=== PATIENT | female | born 1950 | race Caucasian/White ===

== ENCOUNTER 2022-09-15 12:20 | Inpatient (IN) ==
--- NOTE | 2022-09-15 12:32 | Emergency Department Note ---
HPI General Chief complaint: Extremity Injury, Lower Stated complaint: R hip Time Seen by Provider: 09/15/22 12:31 Source: patient and EMS Mode of arrival: ambulatory Limitations: no limitations History of Present Illness HPI Narrative: Narrative: Patient is a 72-year-old female with no significant past medical history who presents to the emergency department due to concern for hip injury. She states that she was in her garage when she tripped and fell on her right side. She states that she immediately began to have significant right hip pain which she describes as 8 out of 10 in severity. She states that it is in the area of the hip without further radiation. She states that worsens with any movement. She denies any other symptoms at this time. Related Data Home Medications Medication Instructions Recorded Confirmed Melaleuca Peak Performance over 50 PO 05/14/21 07/27/22 Movewell PO 05/14/21 07/27/22 cetirizine 10 mg tablet 10 mg PO QDAY 05/14/21 09/15/22 Previous Rx's Medication Instructions Recorded estradiol 2 mg tablet 1 mg PO QDAY #90 tabs 12/04/21 hydrocodone 10 mg-acetaminophen 1 - 2 tab PO Q4HP PRN Per Pain 09/15/22 325 mg tablet Protocol #40 tabs Allergies Allergy/AdvReac Type Severity Reaction Status Date / Time sulfur dioxide Allergy Intermediate bronchial Verified 09/15/22 14:46 constriction amphetamine Allergy Unknown Unknown Verified 09/15/22 12:20 Review of Systems ROS ROS Narrative: Narrative: Constitutional: Denies fever or weakness Eyes: Denies eye pain or vision change ENT ED: Denies throat pain or rhinorrhea Cardiovascular: Denies chest pain, dyspnea on exertion, orthopnea or edema Respiratory: Denies shortness of breath or cough Gastrointestinal: Denies abdominal pain, nausea, vomiting, diarrhea, constipation, hematochezia or melena Musculoskeletal: Reports joint pain (Right hip); Denies back pain or myalgia Integumentary: Denies rash or lesions Neurological: Denies headache, weakness, numbness, confusion, abnormal gait or dizziness Endocrine: Denies fatigue or polyuria Hematological/Lymphatic: Denies easy bleeding or easy bruising PFSH Narrative Patient History Narrative: Narrative: Medical/Surgical/Family History All Active Problems (Updated 09/17/22 @ 10:52 by Mika Lieberman MD) Closed fracture of right hip (Acute) Closed right hip fracture (Acute) Full code status (Acute) Advanced care planning/counseling discussion (Acute) Screening for HIV without presence of risk factors (Acute) Encounter for hepatitis C screening test for low risk patient (Acute) Need for hepatitis B screening test (Acute) Medicare welcome exam (Acute) Breast cancer screening by mammogram (Acute) Cerumen impaction (Acute) Atypical mole (Acute) Fatigue (Acute) Iron deficiency anemia (Acute) Peripheral neuropathy (Acute) Arthritis of both hands (Acute) Wellness examination (Acute) Environmental allergies (Acute) Chest pain (Acute) Menopausal and postmenopausal disorder (Chronic) Reactive airway disease (Chronic) Basal cell carcinoma (Chronic) Allergic rhinitis (Chronic) Medical History (Updated 09/17/22 @ 10:52 by Mika Lieberman MD) Advanced care planning/counseling discussion Allergic rhinitis since an infant, environmental allergies Arthritis of both hands Atypical mole Basal cell carcinoma 2007, from her back Breast cancer screening by mammogram Cerumen impaction Encounter for hepatitis C screening test for low risk patient Environmental allergies Fatigue Full code status Iron deficiency anemia Medicare welcome exam Menopausal and postmenopausal disorder Need for hepatitis B screening test Peripheral neuropathy Reactive airway disease with exposure to cats Screening for HIV without presence of risk factors Wellness examination Surgical History (Updated 05/14/21 @ 15:14 by Michelle Rutherford) History of cryosurgery 4 lesions that were pre-cancerous History of hysterectomy (~1999) Dr. Mancia; for pelvic pain and slightly abnormal pap smear History of lumpectomy Breast History of oophorectomy (~1999) History of tonsillectomy (~1956) Family History (Updated 05/14/21 @ 15:15 by Michelle Rutherford) Family/Other Breast cancer, Onset Age: 70 Mother Esophageal reflux Hypertension, essential Uterus cancer Hysterectomy that revealsed small uterine CA Father , 72 first dx in his 50s, had 3 recurrances Prostate cancer Social History Smoking Status: Never smoker Alcohol Intake Frequency: a few times a week Substance Use: does not use Exam Narrative Narrative: Narrative: General Limitations: no limitations General appearance: Present alert and in no apparent distress; Absent anxious, appears intoxicated or sleepy Head Head: Present atraumatic and normocephalic Eye Eye: Present EOMI; Absent scleral icterus or nystagmus ENT ENT: Present mucous membranes moist; Absent nasal congestion Neck Neck: Present full ROM; Absent tenderness Chest Chest: Present normal inspection and symmetric chest wall rise Respiratory Respiratory: Present normal lung sounds bilaterally; Absent respiratory distress or accessory muscle use Cardiovascular Cardiovascular: Present regular rate, normal rhythm and normal heart sounds Adbominal Abdominal: Present soft; Absent distention Extremities Extremities: Present normal inspection, full ROM and tenderness (Right hip) Back Back: Present normal inspection and full ROM; Absent tenderness Neurological Neurological: Present alert and oriented X3 Psychiatric Psychiatric: Present normal affect and normal mood Skin Skin: Present warm (WNL), dry and normal color Course Vital Signs Vital signs: Vital Signs Temperature 97.7 F 09/15/22 12:21 Pulse Rate 66 09/15/22 12:21 Respiratory Rate 17 09/15/22 12:21 Blood Pressure 150/122 09/15/22 12:21 Pulse Oximetry (%) 95 09/15/22 12:21 Oxygen Delivery Method 09/15/22 12:21 Temperature 98.7 F 09/17/22 08:00 Pulse Rate 79 09/17/22 08:00 Respiratory Rate 16 09/17/22 08:00 Blood Pressure 112/64 09/17/22 08:00 Pulse Oximetry (%) 98 09/17/22 09:00 Oxygen Delivery Method 09/17/22 09:00 MDM MDM Narrative Medical decision making narrative: Narrative: Patient is a 72-year-old female with no significant past medical history who presents to the emergency department due to concern for hip injury. Differential diagnoses include hip fracture, hip dislocation, and soft tissue injury. Patient's x-ray does demonstrate a right-sided subcapital hip fracture. For t his reason I did call and speak to Dr. Harris who agreed with admission of patient in preparation for surgery. Lab Data Result diagrams: 09/16/22 05:18 Labs: Lab Results 09/15/22 09/15/22 09/15/22 Range/Units 12:50 12:50 12:52 WBC 7.3 (4.5-11.0) K/mcL RBC 4.30 (3.59-5.38) M/mcL Hgb 12.5 (11.2-15.7) g/dL Hct 38.4 (34.1-44.9) % POC Hct 38.0 (36-48) MCV 89.3 (80.0-100.0) fL MCH 29.1 (26.0-34.0) pg MCHC 32.6 (31.0-36.0) g/dL RDW 13.1 (11.5-14.5) % Plt Count 207 (140-440) K/mcL MPV 10.0 (8.8-12.5) fL Immature Gran % (Auto) 0.6 H (0.0-0.5) % Neut % (Auto) 63.1 (38.0-78.0) % Lymph % (Auto) 27.2 (15.5-49.0) % [place] % (Auto) 7.2 (1.0-12.0) % Eos % (Auto) 1.2 (0.0-7.0) % Baso % (Auto) 0.7 (0.0-2.0) % Lymph # (Auto) 1.98 (1.50-4.80) K/mcL [place] # (Auto) 0.52 (0.10-0.90) K/mcL Eos # (Auto) 0.09 (0.00-0.70) K/mcL Baso # (Auto) 0.05 (0.00-0.30) K/mcL Immature Gran # 0.04 (0.00-0.05) K/mcl Absolute Neutrophils 4.59 (1.80-8.00) K/mcL PT 13.1 (11.9-14.5) sec INR 1.0 (0.9-1.1) APTT 28.9 (20.0-37.0) sec POC Sodium 140 (133-145) POC Potassium 4.0 (3.3-5.1) POC Chloride 107 (96-108) POC Total CO2 26.0 (22-30) POC BUN 19 (6-20) POC Creatinine 1.1 (0.6-1.2) POC Glucose 106 H (70-105) POC WB Ioniz Calcium 1.24 (1.16-1.32) Urine Color Urine Appearance (Clear) Urine pH (5.0-9.0) Ur Specific [place] (1.000-1.035) Urine Protein (Negative) mg/dL Urine Glucose (UA) (Negative) mg/dL Urine Ketones (Negative) mg/dL Urine Occult Blood (Negative) mg/dL Urine Nitrate (Negative) Urine Bilirubin (Negative) mg/dL Urine Urobilinogen mg/dL Ur Leukocyte Esterase (Negative) /uL Urine RBC (0-3) /hpf Urine WBC (0-4) /hpf Ur Squamous Epith Cells (0-4) /hpf Urine Bacteria (0) /hpf Urine Mucus (None) /hpf Ur Culture Indicated? 09/15/22 Range/Units 13:52 WBC (4.5-11.0) K/mcL RBC (3.59-5.38) M/mcL Hgb (11.2-15.7) g/dL Hct (34.1-44.9) % POC Hct (36-48) MCV (80.0-100.0) fL MCH (26.0-34.0) pg MCHC (31.0-36.0) g/dL RDW (11.5-14.5) % Plt Count (140-440) K/mcL MPV (8.8-12.5) fL Immature Gran % (Auto) (0.0-0.5) % Neut % (Auto) (38.0-78.0) % Lymph % (Auto) (15.5-49.0) % [place] % (Auto) (1.0-12.0) % Eos % (Auto) (0.0-7.0) % Baso % (Auto) (0.0-2.0) % Lymph # (Auto) (1.50-4.80) K/mcL [place] # (Auto) (0.10-0.90) K/mcL Eos # (Auto) (0.00-0.70) K/mcL Baso # (Auto) (0.00-0.30) K/mcL Immature Gran # (0.00-0.05) K/mcl Absolute Neutrophils (1.80-8.00) K/mcL PT (11.9-14.5) sec INR (0.9-1.1) APTT (20.0-37.0) sec POC Sodium (133-145) POC Potassium (3.3-5.1) POC Chloride (96-108) POC Total CO2 (22-30) POC BUN (6-20) POC Creatinine (0.6-1.2) POC Glucose (70-105) POC WB Ioniz Calcium (1.16-1.32) Urine Color Yellow Urine Appearance Clear (Clear) Urine pH 7.0 (5.0-9.0) Ur Specific [place] 1.009 (1.000-1.035) Urine Protein Negative (Negative) mg/dL Urine Glucose (UA) Negative (Negative) mg/dL Urine Ketones Negative (Negative) mg/dL Urine Occult Blood Negative (Negative) mg/dL Urine Nitrate Negative (Negative) Urine Bilirubin Negative (Negative) mg/dL Urine Urobilinogen Negative mg/dL Ur Leukocyte Esterase Negative (Negative) /uL Urine RBC 3 (0-3) /hpf Urine WBC < 1 (0-4) /hpf Ur Squamous Epith Cells 0 (0-4) /hpf Urine Bacteria None (0) /hpf Urine Mucus Few A (None) /hpf Ur Culture Indicated? No Discharge Plan Patient/Caregiver Discharge Instructions Pt seen by RN BURN/PA only: No Clinical Impression: Closed fracture of right hip Activity: ambulate only with your walker Patient Disposition: Xfer As Outpt/Obs ([facility]) Discharge Date/Time: 09/15/22 14:18
[2022-09-15] MEDS ORDERED: HYDROmorphone 0.5 MG/0.5 ML SYRINGE IV ONE (12:37)
[2022-09-15] MEDS ORDERED: ONDANSETRON 4 MG/2 ML VIAL IV ONE (12:51)
[2022-09-15 12:56] LABS: POC Calcium, Ionized 1.24 (1.16-1.32); POC Creatinine 1.1 (0.6-1.2)
[2022-09-15] MEDS ORDERED: 0.9 % SODIUM CHLORIDE 1,000 ML IV SCH (13:45)
[2022-09-15] MEDS: HYDROmorphone 0.5 MG/0.5 ML SYRINGE IV PRN ×3 (13:58→22:08)
[2022-09-15 14:01] LABS: Partial Thromboplastin Time 28.9 sec (20.0-37.0); Prothrombin Time 13.1 sec (11.9-14.5)
--- NOTE | 2022-09-15 14:17 | XRay Report ---
HISTORY: Fell with right hip injury FINDINGS: There is an acute subcapital fracture in the right femoral neck. There is impaction and mild valgus angulation. The femoral head is normally aligned with the acetabulum. Joint space is normal in width. There are small marginal spurs. No other fracture is present. 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 IMPRESSION: Subcapital fracture of the right femoral neck Interpreted and Authenticated by: Tony Sheppard 09/15/22
--- NOTE | 2022-09-15 14:20 | XRay Report ---
HISTORY: Preop for repair fractured right hip FINDINGS: The lungs are clear and well expanded. The heart size, pulmonary vasculature, mediastinum, quinton and pleura are normal. There has been little change since 11/04/19. IMPRESSION: Normal exam Interpreted and Authenticated by: Tony Sheppard 09/15/22
[2022-09-15] MEDS ORDERED: ceFAZolin 2 GM in DEXTROSE 5% IN WATER 50 ML IV SCH (14:45)
[2022-09-15 15:00] LABS: Basophils # (Auto) 0.05 K/mcL (0.00-0.30); Basophils % (Auto) 0.7 % (0.0-2.0); Eosinophils # (Auto) 0.09 K/mcL (0.00-0.70); Eosinophils % (Auto) 1.2 % (0.0-7.0); Hematocrit 38.4 % (34.1-44.9); Hemoglobin 12.5 g/dL (11.2-15.7); Lymphocytes # (Auto) 1.98 K/mcL (1.50-4.80); Lymphocytes % (Auto) 27.2 % (15.5-49.0); Mean Cell Volume 89.3 fL (80.0-100.0); Mean Corpuscular HGB Conc 32.6 g/dL (31.0-36.0); Monocytes # (Auto) 0.52 K/mcL (0.10-0.90); Monocytes % (Auto) 7.2 % (1.0-12.0); Neutrophils % (Auto) 63.1 % (38.0-78.0); Platelet Count 207 K/mcL (140-440); Red Cell Distribution Width 13.1 % (11.5-14.5); WBC 7.3 K/mcL (4.5-11.0)
[2022-09-15 15:04] LABS: Appearance,Urine CLEAR (Clear); Bilirubin,Urine Negative (Negative); Color,Urine YELLOW; Culture Indicated,Urine No; Glucose,Urine (UA) Negative (Negative); Ketones,Urine Negative (Negative); Leukocyte Esterase,Urine Negative /uL (Negative); Mucus,Urine FEW /hpf; Nitrate,Urine Negative (Negative); Protein,Urine Negative (Negative); Specific Gravity,Urine 1.009 (1.000-1.035); Urine Blood Negative (Negative); Urine RBC 3 /hpf (0-3); Urine Squamous Epithelial Cell 0 /hpf (0-4); Urine WBC < 1 /hpf (0-4); Urobilinogen,Urine Negative
[2022-09-15] MEDS ORDERED: MIDAZOLAM 2 MG/2 ML VIAL ONE (15:09)
[2022-09-15] MEDS ORDERED: PROPOFOL 200 MG/20 ML VIAL IV ONE (15:09)
[2022-09-15] MEDS ORDERED: TRANEXAMIC ACID 1,000 MG/10 ML VIAL ONE ×2 (15:09→16:59)
--- NOTE | 2022-09-15 15:34 | Consultation ---
DATE OF CONSULTATION: 09/15/2022 CHIEF COMPLAINT: Right hip pain. HISTORY OF PRESENT ILLNESS: A 72-year-old female with a history of a same level fall on her right hip with immediate pain, swelling, and deformity. She was seen in the Emergency Room and diagnosed with right femoral neck fracture. The patient was confirmed to have a femoral neck fracture after being unable to ambulate after same level fall. No loss of consciousness. Otherwise, she is a fairly healthy individual. She has health problems that are consistent with her ROS. PAST MEDICAL HISTORY: Iron deficient anemia, which is chronic; peripheral neuropathy; and reactive airway disease. MEDICATIONS: Estradiol 2 mg tablet daily. Melaleuca allergy medication. PHYSICAL EXAMINATION: VITAL SIGNS: Height 5'4", weight 150 pounds, BP 123/80, pulse rate 64, respiratory rate 17, temperature 97.7, and oxygen saturation 91. GENERAL: A very pleasant 72-year-old female who is well kept and well groomed, in pain. Patient speaks without difficulty and gives a good history. HEENT: Normocephalic, atraumatic. Tongue is midline. NECK: Supple, nontender LUNGS: Clear to auscultation. CARDIOVASCULAR: Regular rate and rhythm. No murmurs, rubs or gallops. No peripheral edema. No open wounds, lacerations, or abrasions. ABDOMEN: Soft, nontender. EXTREMITIES: Right leg is slightly shortened, but not rotated. She moves her foot up and down without difficulty. Foot is pink and warm. IMAGING: X-rays including AP pelvis, AP and lateral of the right hip demonstrate a subcapital femoral neck fracture with impaction. PLAN: We discussed the treatment options, which includes pinning versus a hemiarthroplasty. We recommended hemiarthroplasty, given the nature and the displacement but both are options. She has agreed to proceed with hemiarthroplasty. Given her good bone quality, this will be a cemented hemiarthroplasty; she will be able to bear weight immediately. She understands the risks and the benefits of any surgery to include heart attack, strokes, and bleeding; infections are a risk, but fairly small risk; and the benefit of which would be to get her up moving quickly and an excellent outcome. BRANDON:lukas Job ID: [id number] Doc ID: [id number] Logan Padilla MD
[2022-09-15] MEDS ORDERED: ACETAMINOPHEN 1,000 MG/100 ML BAG IV ONE (16:01)
[2022-09-15] MEDS ORDERED: IPRATROPIUM/ALBUTEROL 3 ML AMPUL.NEB NEB PRN (16:01)
[2022-09-15] MEDS ORDERED: fentaNYL 100 MCG/2 ML VIAL IV PRN (16:01)
[2022-09-15] MEDS ORDERED: HYDROmorphone 0.5 MG/0.5 ML SYRINGE IV PRN (16:01)
--- NOTE | 2022-09-15 16:14 | EKG ---
[facility] Test Date: 2022-09-15 Pat Name: Lilia Schmidt Department: ED Room: Gender: Female Thread Spooler: SAURABH : 1950 Requested By: Mika Lieberman Order Number: [id number] Reading MD: Christina Mancini D.O. Measurements Intervals [place] Rate: 59 P: 47 MT: 153 QRS: 77 QRSD: 110 T: 54 QT: 408 QTc: 405 Interpretive Statements Sinus rhythm Borderline low voltage, extremity leads Electronically Signed On 09-15-2022 16:14:30 PST by Christina Mancini D.O. /store/M0/[id number]/[id number].pdf
[2022-09-15] MEDS ORDERED: POLYETHYLENE GLYCOL 3350 17 GM PACKET PO PRN (16:54)
[2022-09-15] MEDS ORDERED: FLEETS ADULT ENEMA PR PRN (16:54)
[2022-09-15] MEDS ORDERED: MAGNESIUM HYDROXIDE 30 ML ORAL.SUSP PO PRN (16:54)
[2022-09-15] MEDS ORDERED: TRANEXAMIC ACID 1,000 MG/10 ML VIAL IV ONE (16:54)
[2022-09-15] MEDS ORDERED: BISACODYL 10 MG SUPP.RECT PR PRN (16:54)
[2022-09-15] MEDS ORDERED: TEMAZEPAM 15 MG CAPSULE PO PRN (16:54)
[2022-09-15] MEDS ORDERED: ONDANSETRON 4 MG/2 ML VIAL IV PRN ×2 (16:54)
--- NOTE | 2022-09-15 16:54 | Brief Operative Note ---
Brief Operative Note Date of procedure: 09/15/22 Pre-op diagnosis: right femoral neck fx Post-op diagnosis: same Procedure: Right hip hemiarthroplasty sp fx Grafts/Implants: Yes Anesthesia: GETA Findings: femoral neck fx Complications: none Surgeon: Logan Padilla Estimated blood loss (cc): 84 Specimens Removed/Pathology: none sent Condition: stable Disposition: PACU
[2022-09-15] MEDS: ONDANSETRON 4 MG/2 ML VIAL IV PRN (18:19)
[2022-09-15] MEDS: 0.45 % SODIUM CHLORIDE 1,000 ML IV SCH (18:20)
--- NOTE | 2022-09-15 18:24 | XRay Report ---
HISTORY: Postop repair of right hip fracture FINDINGS: There is a well-positioned right total hip prosthesis. The femoral head and neck have been removed. No new fracture has developed. IMPRESSION: Well-positioned right hip prosthesis Interpreted and Authenticated by: Tony Sheppard 09/15/22
[2022-09-15] MEDS: HYDROcodone/APAP 10/325MG TABLET PO PRN (20:24)
[2022-09-15] MEDS: ASPIRIN 81 MG TAB.CHEW CHEWED SCH (20:24)
[2022-09-15] MEDS: DOCUSATE SODIUM 100 MG CAPSULE PO SCH (20:26)
[2022-09-15] MEDS: SENNOSIDES 1 TABLET PO SCH (20:26)
[2022-09-15] MEDS: 0.9 % SODIUM CHLORIDE 10 ML SYRINGE IV SCH (20:27)
[2022-09-15] MEDS: HYDROmorphone 1 MG/ML SYRINGE IV PRN (21:14)
[2022-09-15] MEDS: ceFAZolin 1 GM VIAL IV SCH (21:55)
[2022-09-16] MEDS: HYDROmorphone 0.5 MG/0.5 ML SYRINGE IV PRN ×2 (00:15→04:06)
[2022-09-16] MEDS: 0.45 % SODIUM CHLORIDE 1,000 ML IV SCH ×2 (04:02→16:07)
[2022-09-16] MEDS: 0.9 % SODIUM CHLORIDE 10 ML SYRINGE IV SCH ×3 (04:06→20:04)
[2022-09-16] MEDS: HYDROmorphone 1 MG/ML SYRINGE IV PRN (07:06)
[2022-09-16] MEDS: ceFAZolin 1 GM VIAL IV SCH (07:07)
--- NOTE | 2022-09-16 07:47 | Operative Note ---
DATE OF OPERATION: 09/15/2022 DATE OF PROCEDURE: 09/15/2022 PREOPERATIVE DIAGNOSIS: Right femoral neck fracture, displaced. POSTOPERATIVE DIAGNOSIS: Right femoral neck fracture, displaced. PROCEDURE: Right hip hemiarthroplasty. SURGEON: Logan Padilla M.D. RECREATIONAL THERAPIST: Hospital staff. ANESTHESIA: Spinal with IV sedation. IMPLANTS: Size 47 bipolar head on a size 1 stem, cementless [place] component. COMPLICATIONS: None. ESTIMATED BLOOD LOSS: About 84 mL. BLOOD PRODUCTS GIVEN: None. IV ANTIBIOTICS: Preoperative antibiotics were confirmed to be given, and tranexamic acid. DESCRIPTION OF PROCEDURE: The patient was brought to the operating suite. Once sedated, the right hip was sterilely prepped in a left lateral position and she had a spinal anesthesia. She was sedated, but able to talk during the case. Once timeout was performed, confirming the right hip as the operative site, patient was turned into a left lateral position, being sterilely prepped and draped, we placed drapes that were sterile, and [place] over the skin. We placed a 3-inch incision above the greater trochanter and superiorly, dissected through the soft tissue layer, identified the fascial layer, which was incised. We then placed the Charnley retractor and released the superior capsule. We dislocated the hip, superiorly and made our neck cut 15 mm proximal to the lesser trochanter. We removed the ball, which was in several pieces. There was a femoral neck fracture, displaced. Fragments that were in the joint were removed and we irrigated thoroughly, preserving the labrum and the capsule. Once done, we were able to then broach the femur. We made a starting awl and then a cookie cutter to remove bone and then this was broached up to the size 1 stem. We calcar reamed to the level of the osteotomy and then trialed a neutral and then a +4 neck length. The high offset was more stable, so this was used. We used a size 1 stem high offset with a +4 neck length, 47 mm outer diameter femoral head. We irrigated thoroughly and this seemed to fit the best and match leg lengths. We irrigated thoroughly and implanted the final implant. This was a Marquez size 1 cementless stem, high offset with a +4 neck length, bipolar 47 mm ball. Once reduced, we checked for stability; very stable. We then repaired the capsule with #1 Ethibond and then closed the skin with #1 Stratafix; we closed the fascial layer with #1 Stratafix as well as the skin with #1 Stratafix. We then placed 2-0 Vicryl subcutaneous and then using an adhesive closure, the upper level was then closed. Xeroform was placed over the wound and a sterile bandage. The patient tolerated this well without complication. RBH:lukas Job ID: [id number] Doc ID: [id number] Logan Padilla MD
[2022-09-16] MEDS: ASPIRIN 81 MG TAB.CHEW CHEWED SCH ×2 (08:44→20:21)
[2022-09-16] MEDS: HYDROcodone/APAP 10/325MG TABLET PO PRN ×2 (08:44→14:48)
[2022-09-16] MEDS: DOCUSATE SODIUM 100 MG CAPSULE PO SCH ×2 (08:50→20:21)
[2022-09-16] MEDS: ONDANSETRON 4 MG/2 ML VIAL IV PRN (09:32)
[2022-09-16] MEDS: METHOCARBAMOL 500 MG TABLET PO PRN (18:05)
--- NOTE | 2022-09-16 18:27 | Orthopedic Progress Note ---
SUBJECTIVE Subjective Patient information: Note initiated : 09/16/22 at 6:22 pm Service Date, if different from initiated Date: [] Patient: Lilia Schmidt 72 y/o F admitted on 09/15/22 for R hip. Chief Complaint: [eating well but slow to ambulate ie a few steps] Principal diagnosis: right femoral neck fx hemiarthroplasty Constitutional Vitals: Vital Signs Temp Pulse Resp BP Pulse Ox O2 Del Method 97.4 F 70 16 100/60 92 09/16/22 16:00 09/16/22 16:00 09/16/22 04:09 09/16/22 16:00 09/16/22 17:00 09/16/22 17:00 Period Temp Pulse Resp BP Sys/Colon Pulse Ox O2 Del Method O2 Flow Rate Last 24 Hr 97.4 F-98.3 F 56-76 14-16 99-129/56-93 90-96 Room Air-Room Air Intake and Output 09/16/22 09/16/22 09/16/22 03:59 11:59 19:59 Intake Total 200 560 Output Total 425 275 Balance -225 285 Weight 156 lb 8 oz Intake & Output: Intake & Output 09/16/22 09/16/22 09/16/22 03:59 11:59 19:59 Intake Total 200 560 Output Total 425 275 Balance -225 285 Weight 156 lb 8 oz Intake: Oral 200 560 Output: Urine Catheter Amount 275 Void Amount 425 Other: Meal Lunch Percent of Meal Consumed 75% Feeding Ability Independent Urine Appearance Clear Clear Uretheral (Gale) Clear Clear Urine Color Yellow Dark Yellow Uretheral (Gale) Yellow Yellow Urine Odor Uretheral (Gale) Normal Expanded Lower Extremity Exam Foot/Toe exam: Present swelling OBJ DATA Labs CBC & Chem 7: 09/16/22 05:18 Labs: Abnormal Lab Results 09/16/22 09/15/22 09/15/22 05:18 13:52 12:52 Hct 26.4 L Immature Gran % (Auto) POC Glucose 106 H Urine Mucus Few A 09/15/22 12:50 Hct Immature Gran % (Auto) 0.6 H POC Glucose Urine Mucus Meds: Medications Acetaminophen (Acetaminophen 325 Mg Tablet) 650 mg PO Q6HP PRN; Protocol PRN Reason: Per Pain Protocol/Fever > 101 Hydrocodone Bitart/Acetaminophen (Hydrocodone/Apap 10/325mg Tablet) 1 - 2 tab PO Q4HP PRN; Protocol PRN Reason: Per Pain Protocol Last Admin: 09/16/22 14:48 Dose: 1 tab Aspirin (Aspirin 81 Mg Tab.Chew) 81 mg CHEWED BID [facility] Last Admin: 09/16/22 08:44 Dose: 81 mg Bisacodyl (Bisacodyl 10 Mg Supp.Rect) 10 mg CA Q2-3DAYS PRN PRN Reason: Constipation Cetirizine HCl (Cetirizine 10 Mg Tablet) 10 mg PO DAILY [facility] Docusate Sodium (Docusate Sodium 100 Mg Capsule) 100 mg PO BID [facility] Last Admin: 09/16/22 08:50 Dose: Not Given Estradiol (Estradiol 1 Mg Tablet) 2 mg PO DAILY [facility] Hydromorphone HCl (Hydromorphone 0.5 Mg/0.5 Ml Syringe) 0.5 mg IV Q2HP PRN; Protocol PRN Reason: Per Pain Protocol Last Admin: 09/16/22 04:06 Dose: 0.5 mg Hydromorphone HCl (Hydromorphone 1 Mg/Ml Syringe) 0.5 - 2 mg IV Q2HP PRN; Protocol PRN Reason: Per Pain Protocol Last Admin: 09/16/22 07:06 Dose: 1 mg Sodium Chloride (Sodium Chloride 0.45%) 1,000 mls @ 100 mls/hr IV .Q10H [facility] Last Admin: 09/16/22 16:07 Dose: Not Given Magnesium Hydroxide (Magnesium Hydroxide 30 Ml Oral.Susp) 30 ml PO BIDP PRN PRN Reason: Constipation Methocarbamol (Methocarbamol 500 Mg Tablet) 500 mg PO TIDP PRN PRN Reason: Muscle Spasm Last Admin: 09/16/22 18:05 Dose: 500 mg Ondansetron HCl (Ondansetron 4 Mg/2 Ml Vial) 4 mg IV Q4HP PRN; Protocol PRN Reason: Nausea And Vomiting Last Admin: 09/16/22 09:32 Dose: 4 mg Ondansetron HCl (Ondansetron 4 Mg/2 Ml Vial) 4 mg IV Q4HP PRN; Protocol PRN Reason: Nausea And Vomiting Polyethylene Glycol (Polyethylene Glycol 3350 17 Gm Packet) 17 gm PO DAILYP PRN PRN Reason: Constipation Senna (Sennosides 1 Tablet) 2 tab PO [facility] Last Admin: 09/15/22 20:26 Dose: Not Given Sodium Biphosphate/Sodium Phosphate (Fleets Adult Enema) 1 dose CA Q3-4DAYS PRN PRN Reason: Constipation Sodium Chloride (0.9 % Sodium Chloride 10 Ml Syringe) 10 ml IV Q8 HAJA Last Admin: 09/16/22 16:08 Dose: 10 ml Temazepam (Temazepam 15 Mg Capsule) 15 mg PO HSP PRN PRN Reason: Insomnia A/P Assessment and plan (1) Closed right hip fracture: Assessment and plan: ambulate wbat Plan: dc to home tomorrow slow to walk sp hemiarthroplasty and will keep overnight for pain controll Status: Acute Time Spent With Patient Time: Total time spent is greater than 50% in coordination of care (as documented) at patient's floor/unit and/or counseling patient:
[2022-09-16] MEDS: SENNOSIDES 1 TABLET PO SCH (20:21)
[2022-09-16] MEDS: ACETAMINOPHEN 325 MG TABLET PO PRN (20:23)
[2022-09-17] MEDS: METHOCARBAMOL 500 MG TABLET PO PRN ×3 (01:26→16:13)
[2022-09-17] MEDS: 0.45 % SODIUM CHLORIDE 1,000 ML IV SCH ×2 (01:55→09:00)
[2022-09-17] MEDS: HYDROcodone/APAP 10/325MG TABLET PO PRN (03:16)
[2022-09-17] MEDS: 0.9 % SODIUM CHLORIDE 10 ML SYRINGE IV SCH ×2 (06:27→15:42)
[2022-09-17] MEDS: ASPIRIN 81 MG TAB.CHEW CHEWED SCH (08:32)
[2022-09-17] MEDS: DOCUSATE SODIUM 100 MG CAPSULE PO SCH (08:33)
[2022-09-17] MEDS: ACETAMINOPHEN 325 MG TABLET PO PRN ×2 (08:43→15:41)
[2022-09-17] MEDS ORDERED: CETIRIZINE 10 MG TABLET PO SCH (09:00)
[2022-09-17] MEDS ORDERED: ESTRADIOL 1 MG TABLET PO SCH (09:00)
== END 2022-09-17 16:30 | disposition home or self-care (01) | DRG 522 ==
LOC: ED 12:20 → SUR 14:12 → MEDSUR 17:17
PROVIDERS: ADMIT Orthopaedic Surgery; ATTEND Orthopaedic Surgery